=== PATIENT | male | born 1970 | race Two or more races ===

== ENCOUNTER 2022-10-21 09:34 | Day surgery (SDC) | payer OTHER ==
[2022-10-21] MEDS ORDERED: diphenhydrAMINE 50 MG/ML VIAL ONE (11:22)
[2022-10-21] MEDS ORDERED: fentaNYL citrate 0.05 MG/ML VIAL ONE (11:22)
[2022-10-21] MEDS ORDERED: MIDAZOLAM 2 MG/2 ML VIAL ONE (11:22)
[2022-10-21] MEDS ORDERED: LIDOCAINE 2% 100 MG/5 ML UJET TP ONE (11:23)
[2022-10-21] MEDS ORDERED: fentaNYL citrate 0.05 MG/ML VIAL IVP ONE (14:05)
[2022-10-21] MEDS ORDERED: MIDAZOLAM 2 MG/2 ML VIAL IVP ONE (14:05)
[2022-10-21] MEDS ORDERED: diphenhydrAMINE 50 MG/ML VIAL IVP ONE (14:05)
== END 2022-10-21 12:40 | disposition home or self-care (01) ==
LOC: MDS 09:34 → MMU 09:53 → MDS 12:40
PROVIDERS: ATTEND Internal Medicine Gastroenterology
DX: Z12.11 Encounter for screening for malignant neoplasm of colon (principal); D12.3 Benign neoplasm of transverse colon; D12.1 Benign neoplasm of appendix; I10 Essential (primary) hypertension; E11.9 Type 2 diabetes mellitus without complications; Z80.0 Family history of malignant neoplasm of digestive organs; F41.9 Anxiety disorder, unspecified; E78.5 Hyperlipidemia, unspecified; Z79.899 Other long term (current) drug therapy
CPT/HCPCS: 45380; 45385; 88305; J1200; J2250; J3010